=== PATIENT | female | born 1970 | race Caucasian/White ===

== ENCOUNTER 2019-05-10 11:10 | Emergency (ER) | payer SELFPAY ==
[~2019-05-10] VITALS: Ht 170.2 cm; Wt 63.6 kg
[~2019-05-10 11:10] MED LIST: AMOXICILLIN 50500 MG PO; CIPRO 500MG TA500 MG PO; GENTAMICIN OPTHA3 GM OU; NO HOME MEDICATIONS; NORCO 325 MG-51 TAB PO; PHENERGAN 25 TA25 MG PO; [UNRECOGNIZED DRUG - REMARK]
[2019-05-10 11:36] VITALS: TEMP 98
[2019-05-10 11:45] VITALS: BP 188/97
[2019-05-10 14:37] LABS: COLLECTION METHOD CLEAN CATCH
[2019-05-10 15:23] LABS: MUCOUS Present /lpf; PH 5 (5-8); URINE APPEARANCE Cloudy; URINE BACTERIA Rare /hpf; URINE BILIRUBIN Negative (NEGATIVE); URINE BLOOD 3+ (NEGATIVE); URINE COLOR Yellow; URINE GLUCOSE 3+ (NEGATIVE); URINE KETONE Negative (NEGATIVE); URINE LEUKOCYTE ESTERASE Trace (NEGATIVE); URINE NITRATE Negative (NEGATIVE); URINE PROTEIN(semi-quant) 1+ (NEGATIVE); URINE UROBILINOGEN Negative (NEGATIVE)
[2019-05-10 15:57] LABS: BASO # 0.1 (0.0-0.2); BASO % 0.5 % (0.0-2.0); EOS # 0.2 (0.0-0.7); EOS % 1.7 % (0-4.0); GRAN # 6.9 (1.4-6.5); GRAN % 69.5 % (42.2-75.2); HEMATOCRIT 39.1 % (37.0-47.0); LYMPH % 20.1 % (20.0-51.0); MEAN CELL VOLUME 85 fl (80.0-100.0); MEAN CORPUSCULAR HEMOGLOBIN 28 pg (27.0-31.0); MEAN CORPUSCULAR HGB CONC 33 g/dl (33.0-37.0); MONO # 0.8 (0.1-0.6); MONO % 7.8 % (1.7-9.3); PLATELET COUNT 370 K/mm3 (130-400); RED BLOOD COUNT 4.61 M/mm3 (4.10-5.30); REDCELL DISTRIBUTION WIDTH-CV 11.9 % (11.5-14.5)
[2019-05-10 16:06] LABS: ALBUMIN 3.7 gm/dL (3.5-5.0); BILIRUBIN,TOTAL 0.2 mg/dL (0.0-1.0); CALCIUM 8.9 mg/dL (8.4-10.2); CREATININE, serum 0.57 (0.52-1.25); POTASSIUM 4.3 mmol/L (3.4-5.0); TOTAL PROTEIN 7.6 gm/dL (6.4-8.2)
[2019-05-10] MEDS ORDERED: GLUCOPHAGE500 MG/TAB PO (16:27)
[2019-05-10] MEDS ORDERED: PRINIVIL10 MG PO (16:27)
[2019-05-10] MEDS ORDERED: AMOXICILLIN875 MG PO (16:31)
[2019-05-10 16:58] VITALS: PULSE 73
== END 2019-05-10 17:00 | disposition home or self-care (01) ==
LOC: COL.ER 11:10
PROVIDERS: Physician Assistant
DX: R51 Headache (principal); E11.9 Type 2 diabetes mellitus without complications; I10 Essential (primary) hypertension; E11.65 Type 2 diabetes mellitus with hyperglycemia; H66.91 Otitis media, unspecified, right ear; Z91.14 Patient's other noncompliance with medication regimen; Z87.891 Personal history of nicotine dependence
CPT/HCPCS: J0595; J1200; J2765; J7030

== ENCOUNTER 2020-09-03 08:30 | Emergency (ER) | payer OTHER ==
[~2020-09-03] VITALS: Ht 170.2 cm; Wt 70.5 kg
[~2020-09-03 08:30] MED LIST changes: +AMOXICILLIN875 MG PO; +GLUCOPHAGE500 MG/TAB PO; +PRINIVIL10 MG PO
[2020-09-03 08:35] VITALS: TEMP 97.6
[2020-09-03 10:04] LABS: BASO % 0.2 % (0.0-2.0); EOS % 0.2 % (0-4.0); GRAN # 3.5 (1.4-6.5); GRAN % 66.4 % (42.2-75.2); HEMOGLOBIN 11.9 g/dl (12.5-16.0); LYMPH # 1.1 (1.2-3.4); LYMPH % 19.8 % (20.0-51.0); MEAN CELL VOLUME 84 fl (80.0-100.0); MEAN CORPUSCULAR HEMOGLOBIN 28 pg (27.0-31.0); MEAN CORPUSCULAR HGB CONC 33 g/dl (33.0-37.0); MEAN PLATELET VOLUME 10.4 fl (7.4-10.4); MONO # 0.7 (0.1-0.6); MONO % 12.8 % (1.7-9.3); PLATELET COUNT 310 K/mm3 (130-400); RED BLOOD COUNT 4.27 M/mm3 (4.10-5.30); REDCELL DISTRIBUTION WIDTH-CV 11.7 % (11.5-14.5)
[2020-09-03 10:06] LABS: INR 1.2 (0.8-3.0); PROTHROMBIN TIME 13.5 SECONDS (9.7-12.8)
[2020-09-03 10:10] LABS: ALANINE AMINOTRANSFERASE 12 U/L (4-34); ALBUMIN 3.6 gm/dL (3.5-5.0); ALKALINE PHOSPHATASE 102 U/L (50-136); ANION GAP 7 mmol/L (7-16); AST,SGOT 24 U/L (15-37); BILIRUBIN,TOTAL 0.5 mg/dL (0.0-1.0); BLOOD UREA NITROGEN 14 mg/dL (7-17); CALCIUM 8.8 mg/dL (8.4-10.2); CARBON DIOXIDE 32 mmol/L (22-30); CHLORIDE 96 mmol/L (98-107); CREATININE, serum 0.62 (0.52-1.25); GLUCOSE 359 mg/dL (74-106); LIPASE 46 U/L (23-300); POTASSIUM 3.3 mmol/L (3.4-5.0); SODIUM 135 mmol/L (137-145); TOTAL PROTEIN 7.6 gm/dL (6.4-8.2)
[2020-09-03 10:21] LABS: TROPONIN-I < 0.012 ng/mL (0.000-0.035)
[2020-09-03] MEDS ORDERED: PREDNISONE20 MG PO (13:30)
[2020-09-03] MEDS ORDERED: NORVASC 10MG10 MG PO (13:30)
[2020-09-03] MEDS ORDERED: GLUCOPHAGE500 MG/TAB PO (13:30)
[2020-09-03 13:55] VITALS: BP 157/85; PULSE 88
== END 2020-09-03 13:55 ==
LOC: COL.ER 08:30
PROVIDERS: Emergency Medicine
DX: U07.1 COVID-19 (principal); E11.65 Type 2 diabetes mellitus with hyperglycemia; I10 Essential (primary) hypertension; Z79.84 Long term (current) use of oral hypoglycemic drugs
CPT/HCPCS: J0360; J1100; J7030

== ENCOUNTER 2020-12-19 10:26 | Emergency (ER) | payer OTHER ==
[~2020-12-19] VITALS: Ht 170.2 cm; Wt 79.5 kg
[~2020-12-19 10:26] MED LIST changes: +NORVASC 10MG10 MG PO; +PREDNISONE20 MG PO
[2020-12-19 10:38] VITALS: TEMP 98.9
[2020-12-19 11:16] LABS: BASO # 0.1 (0.0-0.2); BASO % 1.1 % (0.0-2.0); EOS # 0.2 (0.0-0.7); EOS % 3.4 % (0-4.0); GRAN # 3.6 (1.4-6.5); GRAN % 55.6 % (42.2-75.2); HEMATOCRIT 40.8 % (37.0-47.0); HEMOGLOBIN 13.5 g/dl (12.5-16.0); LYMPH # 1.9 (1.2-3.4); LYMPH % 30.1 % (20.0-51.0); MEAN CELL VOLUME 85 fl (80.0-100.0); MEAN CORPUSCULAR HEMOGLOBIN 28 pg (27.0-31.0); MEAN CORPUSCULAR HGB CONC 33 g/dl (33.0-37.0); MEAN PLATELET VOLUME 10.8 fl (7.4-10.4); MONO # 0.6 (0.1-0.6); MONO % 9.6 % (1.7-9.3); PLATELET COUNT 319 K/mm3 (130-400); REDCELL DISTRIBUTION WIDTH-CV 11.8 % (11.5-14.5)
[2020-12-19 11:29] LABS: ALBUMIN 3.7 gm/dL (3.5-5.0); BILIRUBIN,TOTAL 0.3 mg/dL (0.0-1.0); C-REACTIVE PROTEIN 0.7 mg/dL (0.0-0.9); CREATININE, serum 0.63 (0.52-1.25); POTASSIUM 3.5 mmol/L (3.4-5.0); TOTAL PROTEIN 7.6 gm/dL (6.4-8.2)
[2020-12-19 12:36] LABS: COLLECTION METHOD CLEAN CATCH
[2020-12-19 12:43] LABS: MUCOUS Present /lpf; PH 6 (5-8); SQUAMOUS EPITHELIAL 0-2 /hpf; URINE APPEARANCE Hazy; URINE BACTERIA None Seen /hpf; URINE BILIRUBIN Negative (NEGATIVE); URINE BLOOD 1+ (NEGATIVE); URINE COLOR Straw; URINE GLUCOSE 3+ (NEGATIVE); URINE KETONE Negative (NEGATIVE); URINE LEUKOCYTE ESTERASE 2+ (NEGATIVE); URINE NITRATE Negative (NEGATIVE); URINE PROTEIN(semi-quant) Negative (NEGATIVE); URINE UROBILINOGEN Negative (NEGATIVE)
[2020-12-19] MEDS ORDERED: NORCO 325 MG-51 TAB PO (14:06)
[2020-12-19] MEDS ORDERED: CEFTIN500 MG PO (14:06)
[2020-12-19] MEDS ORDERED: GLUCOPHAGE1000 MG PO (14:06)
[2020-12-19 14:45] VITALS: BP 168/98; PULSE 89
== END 2020-12-19 14:45 | disposition home or self-care (01) ==
LOC: COL.ER 10:26
PROVIDERS: Nurse Practitioner
DX: N39.0 Urinary tract infection, site not specified (principal); I10 Essential (primary) hypertension; E11.65 Type 2 diabetes mellitus with hyperglycemia; Z79.84 Long term (current) use of oral hypoglycemic drugs; Z80.49 Family history of malignant neoplasm of other genital organs
CPT/HCPCS: J0696; J1815; J2270; J2405; J7030

== ENCOUNTER → 2021-03-31 | Outpatient (CLI) | payer MEDICAID ==
[~2021-03-31] MED LIST changes: +CEFTIN500 MG PO; +GLUCOPHAGE1000 MG PO; +NEURONTIN300 MG/CAP PO; +PRIL40 PO; +PRINIVIL20 MG PO; +ULTRAM 50MG TAB50 MG PO; +ZOFRAN ODT4 MG PO
== END ==
LOC: COL.RAD 08:54
DX: R10.11 Right upper quadrant pain (principal)
CPT/HCPCS: A9537

== ENCOUNTER 2021-04-29 12:01 | Emergency (ER) | payer OTHER ==
[~2021-04-29] VITALS: Ht 170.2 cm; Wt 55.5 kg
[~2021-04-29 12:01] MED LIST changes: -NEURONTIN300 MG/CAP PO; -PRIL40 PO; -PRINIVIL20 MG PO; -ULTRAM 50MG TAB50 MG PO; -ZOFRAN ODT4 MG PO
[2021-04-29 12:21] VITALS: TEMP 97.4
[2021-04-29] MEDS ORDERED: NEURONTIN300 MG/CAP PO (12:33)
[2021-04-29] MEDS ORDERED: PRINIVIL20 MG PO (12:34)
[2021-04-29] MEDS ORDERED: PRIL40 PO (12:35)
[2021-04-29] MEDS ORDERED: ULTRAM 50MG TAB50 MG PO (12:36)
[2021-04-29 13:01] LABS: BASO % 0.4 % (0.0-2.0); EOS # 0.2 (0.0-0.7); EOS % 1.8 % (0-4.0); GRAN # 8.1 (1.4-6.5); GRAN % 73.2 % (42.2-75.2); HEMATOCRIT 39.5 % (37.0-47.0); HEMOGLOBIN 13.3 g/dl (12.5-16.0); LYMPH # 1.7 (1.2-3.4); LYMPH % 15.8 % (20.0-51.0); MEAN CELL VOLUME 85 fl (80.0-100.0); MEAN CORPUSCULAR HEMOGLOBIN 29 pg (27.0-31.0); MEAN CORPUSCULAR HGB CONC 34 g/dl (33.0-37.0); MEAN PLATELET VOLUME 10.3 fl (7.4-10.4); MONO # 0.9 (0.1-0.6); MONO % 8.4 % (1.7-9.3); PLATELET COUNT 374 K/mm3 (130-400); RED BLOOD COUNT 4.66 M/mm3 (4.10-5.30); REDCELL DISTRIBUTION WIDTH-CV 11.9 % (11.5-14.5)
[2021-04-29 13:14] LABS: ALBUMIN 4.3 gm/dL (3.5-5.0); BILIRUBIN,TOTAL 0.8 mg/dL (0.0-1.0); CALCIUM 10.1 mg/dL (8.4-10.2); CREATININE, serum 1.03 (0.52-1.25); POTASSIUM 3.9 mmol/L (3.4-5.0); TOTAL PROTEIN 7.8 gm/dL (6.4-8.2)
[2021-04-29 14:25] LABS: COLLECTION METHOD CLEAN CATCH
[2021-04-29 14:56] LABS: MUCOUS Present /lpf; PH 6 (5-8); SQUAMOUS EPITHELIAL 20-50 /hpf; URINE APPEARANCE Cloudy; URINE BACTERIA Rare /hpf; URINE BILIRUBIN Negative (NEGATIVE); URINE BLOOD Negative (NEGATIVE); URINE COLOR Yellow; URINE GLUCOSE 3+ (NEGATIVE); URINE KETONE 1+ (NEGATIVE); URINE LEUKOCYTE ESTERASE 3+ (NEGATIVE); URINE NITRATE Negative (NEGATIVE); URINE PROTEIN(semi-quant) 1+ (NEGATIVE); URINE UROBILINOGEN Negative (NEGATIVE)
[2021-04-29] MEDS ORDERED: NORCO 325 MG-51 TAB PO (16:27)
[2021-04-29] MEDS ORDERED: ZOFRAN ODT4 MG PO (16:27)
[2021-04-29 16:29] VITALS: BP 152/73; PULSE 91
== END 2021-04-29 16:20 | disposition home or self-care (01) ==
LOC: COL.ER 12:01
PROVIDERS: Emergency Medicine
DX: N39.0 Urinary tract infection, site not specified (principal); I10 Essential (primary) hypertension; E11.9 Type 2 diabetes mellitus without complications; Z32.02 Encounter for pregnancy test, result negative; Z79.84 Long term (current) use of oral hypoglycemic drugs; Z79.899 Other long term (current) drug therapy
CPT/HCPCS: J0360; J1170; J2405; J2765; J3010; J7120; Q9967

== ENCOUNTER 2021-05-04 11:13 | Emergency (ER) | payer OTHER ==
[~2021-05-04 11:13] MED LIST changes: +NEURONTIN300 MG/CAP PO; +PRIL40 PO; +PRINIVIL20 MG PO; +ULTRAM 50MG TAB50 MG PO; +ZOFRAN ODT4 MG PO
[2021-05-04 11:22] VITALS: TEMP 97.8
[2021-05-04 11:51] LABS: BASO # 0.1 (0.0-0.2); BASO % 0.8 % (0.0-2.0); EOS # 0.1 (0.0-0.7); EOS % 1.3 % (0-4.0); GRAN # 4.6 (1.4-6.5); GRAN % 53.9 % (42.2-75.2); HEMATOCRIT 42.2 % (37.0-47.0); HEMOGLOBIN 14.4 g/dl (12.5-16.0); LYMPH # 2.8 (1.2-3.4); LYMPH % 33.2 % (20.0-51.0); MEAN CELL VOLUME 84 fl (80.0-100.0); MEAN CORPUSCULAR HEMOGLOBIN 29 pg (27.0-31.0); MEAN CORPUSCULAR HGB CONC 34 g/dl (33.0-37.0); MEAN PLATELET VOLUME 10.5 fl (7.4-10.4); MONO # 0.9 (0.1-0.6); MONO % 10.6 % (1.7-9.3); PLATELET COUNT 464 K/mm3 (130-400); RED BLOOD COUNT 5.03 M/mm3 (4.10-5.30); REDCELL DISTRIBUTION WIDTH-CV 12.1 % (11.5-14.5)
[2021-05-04 12:02] LABS: ALANINE AMINOTRANSFERASE 16 U/L (4-34); ALBUMIN 4.4 gm/dL (3.5-5.0); ALKALINE PHOSPHATASE 70 U/L (50-136); ANION GAP 13 mmol/L (7-16); AST,SGOT 22 U/L (15-37); BILIRUBIN,TOTAL 0.7 mg/dL (0.0-1.0); BLOOD UREA NITROGEN 18 mg/dL (7-17); CALCIUM 10.1 mg/dL (8.4-10.2); CARBON DIOXIDE 26 mmol/L (22-30); CHLORIDE 95 mmol/L (98-107); CREATININE, serum 1.13 (0.52-1.25); GLUCOSE 219 mg/dL (74-106); POTASSIUM 4.2 mmol/L (3.4-5.0); SODIUM 135 mmol/L (137-145); TOTAL PROTEIN 8.2 gm/dL (6.4-8.2)
[2021-05-04 12:03] LABS: PROTHROMBIN TIME 11.2 SECONDS (9.7-12.8)
[2021-05-04 12:06] LABS: PARTIAL THROMBOPLASTIN TIME 31.2 SECONDS (26.0-37.0)
[2021-05-04 12:14] LABS: COLLECTION METHOD CLEAN CATCH
[2021-05-04 12:18] LABS: TROPONIN-I < 0.012 ng/mL (0.000-0.035)
[2021-05-04 12:22] LABS: MUCOUS Present /lpf; PH 5 (5-8); SQUAMOUS EPITHELIAL 0-2 /hpf; URINE APPEARANCE Clear; URINE BACTERIA None Seen /hpf; URINE BILIRUBIN Negative (NEGATIVE); URINE BLOOD 1+ (NEGATIVE); URINE COLOR Yellow; URINE GLUCOSE 1+ (NEGATIVE); URINE KETONE Negative (NEGATIVE); URINE LEUKOCYTE ESTERASE Negative (NEGATIVE); URINE NITRATE Negative (NEGATIVE); URINE PROTEIN(semi-quant) Negative (NEGATIVE); URINE RBC 0-2 /hpf; URINE UROBILINOGEN Negative (NEGATIVE)
[2021-05-04 13:18] VITALS: BP 148/87; PULSE 90
== END 2021-05-04 13:18 | disposition short-term general hospital (02) ==
LOC: COL.ER 11:13
PROVIDERS: Emergency Medicine
DX: I63.9 Cerebral infarction, unspecified (principal); I10 Essential (primary) hypertension; E11.9 Type 2 diabetes mellitus without complications; Z79.84 Long term (current) use of oral hypoglycemic drugs; Z79.899 Other long term (current) drug therapy
CPT/HCPCS: J3101; J7030; J7050; Q9967

== ENCOUNTER → 2021-08-18 | Outpatient (CLI) | payer OTHER | LOC: COL.RAD 10:32 | DX: K86.89 Other specified diseases of pancreas (principal); Z90.49 Acquired absence of other specified parts of digestive tract | CPT/HCPCS: Q9967 ==

== ENCOUNTER 2021-09-22 10:30 | Outpatient (RCR) | payer OTHER | END 2021-09-24 | disposition home or self-care (01) | LOC: MKS.ESL.PT | DX: I69.351 Hemiplegia and hemiparesis following cerebral infarction affecting right dominant side (principal) ==

== ENCOUNTER → 2021-10-08 | Outpatient (CLI) | payer OTHER | LOC: COL.RAD 12:15 | DX: R29.898 Other symptoms and signs involving the musculoskeletal system (principal) ==

== ENCOUNTER 2021-11-01 11:15 | Outpatient (RCR) | payer OTHER | END 2021-11-22 | disposition home or self-care (01) | LOC: MKS.ESL.PT | DX: I63.239 Cerebral infarction due to unspecified occlusion or stenosis of unspecified carotid artery (principal); Z90.49 Acquired absence of other specified parts of digestive tract; Z83.3 Family history of diabetes mellitus ==

== ENCOUNTER → 2022-01-13 15:40 | Outpatient (RCR) | payer OTHER | END | disposition home or self-care (01) | LOC: MKS.ESL.PT 11-23 14:30 | DX: I69.359 Hemiplegia and hemiparesis following cerebral infarction affecting unspecified side (principal) ==

== ENCOUNTER 2022-12-19 21:38 | Observation (INO) | payer MEDICAID ==
[~2022-12-19] VITALS: Ht 170.2 cm; Wt 79.6 kg
[~2022-12-19 21:38] MED LIST changes: +ADVIL LIQUI-GE200 MG PO; +ASPIRIN E.C. 8181 MG PO; +EUCERIN1 CRE TOP; +GLUCOTROL 5M5 MG/TAB PO; +HYZAAR 25 MG-101 TAB; +IBU600 MG PO; +IMITREX50 MG PO; +LIPITOR20 MG PO; +MOTRIN 200200 MG/TAB PO; +MOTRIN 800800 MG/TAB PO; +OMNICEF 300MG300 MG PO
[2022-12-19 22:01] LABS: COLLECTION METHOD CATHETER
[2022-12-19 22:02] LABS: BASO # 0.1 K/mm3 (0.0-0.2); BASO % 0.7 % (0.0-2.0); EOS # 0.3 K/mm3 (0.0-0.7); EOS % 2.3 % (0.0-4.0); GRAN # 9.3 K/mm3 (1.4-6.5); GRAN % 65.1 % (42.2-75.2); HEMATOCRIT 37.1 % (37.0-47.0); HEMOGLOBIN 12.3 g/dl (12.5-16.0); LYMPH # 3.2 K/mm3 (1.2-3.4); LYMPH % 22.6 % (20.0-51.0); MEAN CELL VOLUME 87 fl (80.0-100.0); MEAN CORPUSCULAR HEMOGLOBIN 29 pg (27-31); MEAN CORPUSCULAR HGB CONC 33 g/dl (33.0-37.0); MEAN PLATELET VOLUME 10.3 fl (7.4-10.4); MONO # 1.3 K/mm3 (0.1-0.6); MONO % 8.9 % (1.7-9.3); PLATELET COUNT 460 K/mm3 (130-400); RED BLOOD COUNT 4.25 M/mm3 (4.10-5.30); REDCELL DISTRIBUTION WIDTH-CV 11.9 % (11.5-14.5)
[2022-12-19 22:06] LABS: INR 0.9 (0.8-3.0); PROTHROMBIN TIME 10.7 SECONDS (9.7-12.8)
[2022-12-19 22:09] LABS: URINE APPEARANCE Clear (CLEAR/HAZY); URINE BLOOD Negative (NEGATIVE); URINE COLOR Yellow (YELLOW); URINE GLUCOSE 3+ (NEGATIVE); URINE KETONE Negative (NEGATIVE); URINE NITRATE Negative (NEGATIVE); URINE PROTEIN(semi-quant) Negative (NEGATIVE); URINE UROBILINOGEN 0.2 E.U/dL (0.2-1.0)
[2022-12-19 22:13] LABS: TRICYCLIC ANTIDEPRESS URINE NEGATIVE
[2022-12-19 22:14] LABS: SQUAMOUS EPITHELIAL 0-2 /hpf (0-10); URINE BACTERIA None Seen /hpf (NONE SEEN); URINE RBC 0-2 /hpf (0-2); URINE WBC 0-2 /hpf (0-2)
[2022-12-19 22:16] LABS: ALANINE AMINOTRANSFERASE 34 U/L (0-55); ALBUMIN 3.9 gm/dL (3.5-5.0); ALCOHOL(ethanol),MEDICAL < 10 mg/dL (0-10); ALKALINE PHOSPHATASE 132 U/L (40-150); ANION GAP 12 mmol/L (7-16); AST,SGOT 23 U/L (5-34); BILIRUBIN,TOTAL 0.3 mg/dL (0.2-1.2); BLOOD UREA NITROGEN 41 mg/dL (10-20); C-REACTIVE PROTEIN 0.99 mg/dL (0.00-0.50); CALCIUM 10.1 mg/dL (8.4-10.2); CARBON DIOXIDE 25 mmol/L (22-29); CHLORIDE 101 mmol/L (98-107); GLUCOSE 293 mg/dL (70-99); POTASSIUM 4.2 mmol/L (3.5-4.5); SODIUM 138 mmol/L (136-145); TOTAL PROTEIN 8.4 gm/dL (6.2-8.1)
[2022-12-19 22:23] LABS: TROPONIN-I < 0.010 ng/mL (0.00-0.033)
[2022-12-20] VITALS (7 sets, daily range): BP systolic 136–195; BP diastolic 59–86; PULSE 68–77; TEMP 97.9–98.6
[2022-12-20] MEDS ORDERED: LEVEMIR FLEX100 U/ML SQ (02:19)
[2022-12-20] MEDS ORDERED: FARXIGA5 PO (02:24)
[2022-12-20] MEDS ORDERED: MICROZIDE12.5 MG PO (02:25)
[2022-12-20] MEDS ORDERED: ZESTRIL 5MG5 MG PO (02:26)
[2022-12-20] MEDS ORDERED: NORVASC 5MG5 MG/TAB PO (02:27)
[2022-12-20] MEDS ORDERED: VITAMIN B-6100 MG (02:28)
[2022-12-20] MEDS ORDERED: ERGOCALCIFER50000 IU PO (02:28)
--- NOTE | 2022-12-20 02:40 | NUR ---
PT ARRIVED FROM ER VIA STRETCHER. ABLE TO AMBULATED INTO MEDICAL BED WITH ONE PERSON ASSIST. PT'S SBP 195, IRMA KELLER NOTIFIED AND STATES TO CONTINUE TO MONITOR. PRN MEDS IN FOR SBP >220. PT AAOX4, STATES CAME TO HOSPITAL ONLY BECAUSE DAUGHTER IN LAW WAS CONCERNED, HOWEVER PT NEVER FELT UNWELL. CALL LIGHT IN PLACE, FALL RISK PREVENTIONS IN PLACE. WILL CONTINUE TO MONITOR.
[2022-12-20 07:15] LABS: BASO # 0.1 K/mm3 (0.0-0.2); BASO % 0.6 % (0.0-2.0); EOS # 0.3 K/mm3 (0.0-0.7); EOS % 2.5 % (0.0-4.0); GRAN # 8.6 K/mm3 (1.4-6.5); GRAN % 65.5 % (42.2-75.2); HEMOGLOBIN 10.7 g/dl (12.5-16.0); LYMPH # 2.8 K/mm3 (1.2-3.4); LYMPH % 20.9 % (20.0-51.0); MEAN CELL VOLUME 86 fl (80.0-100.0); MEAN CORPUSCULAR HEMOGLOBIN 29 pg (27-31); MEAN CORPUSCULAR HGB CONC 34 g/dl (33.0-37.0); MEAN PLATELET VOLUME 10.8 fl (7.4-10.4); MONO # 1.4 K/mm3 (0.1-0.6); MONO % 10.2 % (1.7-9.3); PLATELET COUNT 393 K/mm3 (130-400); RED BLOOD COUNT 3.69 M/mm3 (4.10-5.30); REDCELL DISTRIBUTION WIDTH-CV 11.8 % (11.5-14.5)
[2022-12-20 07:20] LABS: HEMATOCRIT 31.9 % (37.0-47.0)
[2022-12-20 07:30] LABS: CREATININE, serum 1.25 mg/dL (0.57-1.11); POTASSIUM 3.9 mmol/L (3.5-4.5)
--- NOTE | 2022-12-20 14:18 | NUR ---
Initial visit; Patient thanked Ion Exchange Operator for looking in on her and offering God's blessings. Patient was eating so Ion Exchange Operator didn't linger, only to wish her well.
--- NOTE | 2022-12-20 15:18 | NUR ---
Compound Finisher met with patient to discuss discharge planning. Patient lives in [place] with her son, Cipriano and daughter in law, Tom (ph#[phone]). Patient sees Dr. Nails for primary care and obtains medications from [facility]. Patient advised Tom picks these up for her. Patient has a cane available at home, but reports she mostly uses the nelson in the home for ambulation. Patient does use a cane out in the community. Patient reports she is normally independent with ADLS but does always have someone home when she showers. Patient stated her DPOA-HC is her DILTom and she completed it at Dr. Nails's office. Patient plans to return home at time of discharge. VIELKA contacted VIELKA Talbert at Dr. Nails's office and requested copy of DPOA-HC. VIELKA placed copy on patient's chart. SW then contacted patient's DIL Tom who advised patient has a cane and walker available to her at home. Tom is in agreement with discharge plan of home. Discharge Plan: Home
--- NOTE | 2022-12-20 21:50 | NUR ---
Patient alert and orientedx 4 at this time, head to toe assessment done, see shift assessment, denies pain or discomfort at this time, INT to right AC, noted mild weakness to left upper extremities, denies further needs, call light and personal items within reach, will continue to monitor.
[2022-12-21 03:47] VITALS: BP 160/77; PULSE 75; TEMP 97.8
--- NOTE | 2022-12-21 04:45 | NUR ---
Patient resting in bed, eyes closed, respirations even and unlabored.
--- NOTE | 2022-12-21 06:22 | NUR ---
Patient was able to sleep last night, denies further need at this time.
[2022-12-21 07:22] VITALS: BP 149/71; PULSE 68; TEMP 97.6
[2022-12-21] MEDS ORDERED: LIPITOR 40MG TA40 MG PO (10:17)
[2022-12-21] MEDS ORDERED: PLAVIX 75MG TAB75 MG PO (10:17)
[2022-12-21] MEDS ORDERED: ASPIRIN 81M81 MG/TA2 PO (10:18)
--- NOTE | 2022-12-21 10:36 | NUR ---
Follow-up visit; Patient very sweet and said she feels a little bit better and thanked Prime Broker for looking in on her and continuing to keep her in Prime Broker's prayers.
[2022-12-21 10:50] VITALS: BP 133/69; PULSE 71; TEMP 98.3
--- NOTE | 2022-12-21 11:20 | NUR ---
Agree with student nurses assessment of the patient. Patient A&Ox3 with intermittent confusion. VSS. IV CDI. Denies pain and discomfort. Call light within reach. Bed alarm on
--- NOTE | 2022-12-21 12:37 | NUR ---
Patient transferred to [facility] Medical Unit from [facility] Surgical unit. Health Worker met with Britany to introduce self as SW on medical unit. SW collaborated with Patient to review Care Managment Assessment conducted by VIELKA Dowell yesterday, 12-20-22. Patient reports no changes to information. SW briefed Patient that this SW will follow through treatment and work with treatment team to assess for discharge needs. SW reviewed Patient's chart for PT/OT. PT/OT reccomendations are home with family assist. Discharge Plan: Home with family assist.
--- NOTE | 2022-12-21 16:30 | NUR ---
Discharge paperwork reviewed with the patient and family at the bedside. Patient verbalized an understanding to follow doctors orders. IV removed, tip intact. Gauze and coban applied. Patient transfered by wheelchair to awaiting vehicle. No further needs expressed.
== END 2022-12-21 16:30 | disposition home or self-care (01) ==
LOC: COL.ER 21:38 → SURG 12-20 00:47 → MEDICAL 12-21 06:00
PROVIDERS: Emergency Medicine; Student in an Organized Health Care Education/Training Program; ADMIT Internal Medicine
DX: I63.89 Other cerebral infarction (principal); R53.1 Weakness; G89.29 Other chronic pain; N17.9 Acute kidney failure, unspecified; R26.89 Other abnormalities of gait and mobility; M54.2 Cervicalgia; R51.9 Headache, unspecified; E11.65 Type 2 diabetes mellitus with hyperglycemia; I10 Essential (primary) hypertension; E53.1 Pyridoxine deficiency; E55.9 Vitamin D deficiency, unspecified; E11.42 Type 2 diabetes mellitus with diabetic polyneuropathy; R41.81 Age-related cognitive decline; E78.5 Hyperlipidemia, unspecified; R01.1 Cardiac murmur, unspecified; R79.0 Abnormal level of blood mineral; Z79.4 Long term (current) use of insulin; Z79.899 Other long term (current) drug therapy; Z79.84 Long term (current) use of oral hypoglycemic drugs; Z79.82 Long term (current) use of aspirin
CPT/HCPCS: G0378; J1650; J1815; J7030; Q9967

== ENCOUNTER 2023-08-21 10:15 | Outpatient (RCR) | payer MEDICAID ==
[~2023-08-21 10:15] MED LIST changes: +ASPIRIN 81M81 MG/TA2 PO; +ERGOCALCIFER50000 IU PO; +FARXIGA5 PO; +LEVEMIR FLEX100 U/ML SQ; +LIPITOR 40MG TA40 MG PO; +MICROZIDE12.5 MG PO; +NORVASC 5MG5 MG/TAB PO; +PLAVIX 75MG TAB75 MG PO; +VITAMIN B-6100 MG; +ZESTRIL 5MG5 MG PO
== END 2023-08-24 | disposition home or self-care (01) ==
LOC: MKS.ESL.PT
DX: R53.1 Weakness (principal); R26.9 Unspecified abnormalities of gait and mobility

== ENCOUNTER 2023-08-30 11:15 | Outpatient (RCR) | payer MEDICAID | END 2023-09-24 | disposition home or self-care (01) | LOC: MKS.ESL.PT | DX: R53.1 Weakness (principal); R26.9 Unspecified abnormalities of gait and mobility ==

== ENCOUNTER 2023-11-13 08:29 | Outpatient (RCR) | payer MEDICAID ==
[~2023-11-13 08:29] MED LIST changes: +HCTZ12.5TAB PO; -HYZAAR 25 MG-101 TAB; +HYZAAR 25 MG-101 TAB PO; -MICROZIDE12.5 MG PO
== END 2023-11-13 08:30 ==
LOC: MKS.ESL.PT 08:29
DX: R53.1 Weakness (principal); R26.9 Unspecified abnormalities of gait and mobility

== ENCOUNTER 2023-12-05 15:07 | Inpatient (IN) | payer MEDICARE, MEDICAID ==
[~2023-12-05] VITALS: Ht 170.2 cm; Wt 89.1 kg
[2023-12-05] VITALS (86 sets, daily range): BP systolic 137–241; BP diastolic 73–113; PULSE 71–77; TEMP 97.9; O2SAT 92–98
[2023-12-05] MEDS ORDERED: niCARdipine 200 ML IV ONE (15:30)
[2023-12-05 15:38] LABS: BASO # 0.1 K/mm3 (0.0-0.2); BASO % 0.7 % (0.0-2.0); EOS # 0.2 K/mm3 (0.0-0.7); GRAN # 8.5 K/mm3 (1.4-6.5); GRAN % 73.7 % (42.2-75.2); HEMATOCRIT 40.5 % (37.0-47.0); LYMPH # 1.9 K/mm3 (1.2-3.4); LYMPH % 16.6 % (20.0-51.0); MEAN CELL VOLUME 87 fl (80.0-100.0); MEAN CORPUSCULAR HEMOGLOBIN 28 pg (27-31); MEAN CORPUSCULAR HGB CONC 32 g/dl (33.0-37.0); MEAN PLATELET VOLUME 10.1 fl (7.4-10.4); MONO # 0.7 K/mm3 (0.1-0.6); MONO % 6.4 % (1.7-9.3); PLATELET COUNT 483 K/mm3 (130-400); RED BLOOD COUNT 4.65 M/mm3 (4.10-5.30); REDCELL DISTRIBUTION WIDTH-CV 12.7 % (11.5-14.5)
[2023-12-05 15:59] LABS: ALBUMIN 3.8 gm/dL (3.5-5.0); BILIRUBIN,TOTAL 0.5 mg/dL (0.2-1.2); CALCIUM 10.5 mg/dL (8.4-10.2); CREATININE, serum 1.79 mg/dL (0.57-1.11); TOTAL PROTEIN 8.2 gm/dL (6.2-8.1)
[2023-12-05 16:20] LABS: COLLECTION METHOD CATHETER
[2023-12-05 16:24] LABS: PH 6.5 (5.0-8.5); URINE APPEARANCE CLEAR (CLEAR/HAZY); URINE BLOOD NEGATIVE (NEGATIVE); URINE COLOR YELLOW (YELLOW); URINE GLUCOSE 3+ (NEGATIVE); URINE KETONE NEGATIVE (NEGATIVE); URINE NITRATE NEGATIVE (NEGATIVE); URINE PROTEIN(semi-quant) NEGATIVE (NEGATIVE); URINE UROBILINOGEN 0.2 E.U/dL (0.2-1.0)
[2023-12-05] MEDS ORDERED: Iohexol 300 - 100 ML VIAL IV ONE (17:02)
[2023-12-05] MEDS ORDERED: NS 100 ML IV SCH (17:02)
[2023-12-05] MEDS ORDERED: Acetaminophen 500 MG TAB PO ONE (17:45)
[2023-12-05] MEDS ORDERED: GLUCOPHAGE500 MG/TAB PO (19:16)
[2023-12-05] MEDS ORDERED: LEVEMIR FLEX100 U/ML SQ (19:22)
[2023-12-05] MEDS ORDERED: ADMELOG SO100 UNIT/1 SQ (19:24)
[2023-12-05] MEDS ORDERED: IBU400 MG PO (19:25)
[2023-12-05] MEDS ORDERED: Ondansetron 4 MG/2 ML VIAL IV PRN (19:30)
[2023-12-05] MEDS ORDERED: Acetaminophen 325 MG TAB PO PRN (19:30)
[2023-12-05] MEDS ORDERED: NS 1,000 ML IV SCH (19:30)
[2023-12-05] MEDS ORDERED: Albuterol/Ipratropium 3 MG-0.5 MG/3 ML Neb Soln IH PRN (19:30)
[2023-12-05] MEDS ORDERED: Dextrose (Glucose) 15 GM (4 x 3.75 GM) Chewable TABLET PACK PO PRN (20:00)
[2023-12-05] MEDS ORDERED: Dextrose 50% Water 25 GM/50 ML SYRINGE IV PRN (20:00)
[2023-12-05] MEDS ORDERED: Glucagon 1 MG VIAL IM PRN (20:00)
[2023-12-05 20:33] LABS: PROTHROMBIN TIME 11.2 SECONDS (9.7-12.8)
[2023-12-05 20:36] LABS: PARTIAL THROMBOPLASTIN TIME 30.2 SECONDS (26.0-37.0)
[2023-12-05] MEDS ORDERED: Insulin Glargine-ygfn (Lantus) SQ SCH (21:00)
[2023-12-05] MEDS ORDERED: Sennosides/Docusate 8.6-50 MG TAB PO SCH (21:00)
[2023-12-05] MEDS ORDERED: Insulin Lispro (HumaLOG) SQ SCH (21:00)
[2023-12-05] MEDS ORDERED: hydrALAZINE 20 MG/ML 1 ML VIAL IV PRN (22:30)
[2023-12-05] MEDS ORDERED: Acetamin/Butalbital/Caffeine 325-50-40 MG TAB PO PRN (22:30)
[2023-12-06] VITALS (716 sets, daily range): BP systolic 129–179; BP diastolic 76–104; PULSE 60–71; TEMP 97.2–98.2; O2SAT 84–100
[2023-12-06] MEDS ORDERED: Gabapentin 300 MG CAP PO SCH ×2 (02:38→10:30)
[2023-12-06 04:58] LABS: HEMOGLOBIN 11.4 g/dl (12.5-16.0); MEAN CELL VOLUME 84 fl (80.0-100.0); MEAN CORPUSCULAR HEMOGLOBIN 28 pg (27-31); MEAN CORPUSCULAR HGB CONC 34 g/dl (33.0-37.0); MEAN PLATELET VOLUME 10.2 fl (7.4-10.4); PLATELET COUNT 438 K/mm3 (130-400); RED BLOOD COUNT 4.02 M/mm3 (4.10-5.30); REDCELL DISTRIBUTION WIDTH-CV 12.6 % (11.5-14.5)
[2023-12-06 05:11] LABS: HEMATOCRIT 33.8 % (37.0-47.0)
[2023-12-06 05:17] LABS: ALANINE AMINOTRANSFERASE 14 U/L (0-55); ALBUMIN 3.4 gm/dL (3.5-5.0); ALKALINE PHOSPHATASE 105 U/L (40-150); ANION GAP 10 mmol/L (7-16); AST,SGOT 14 U/L (5-34); BILIRUBIN,TOTAL 0.5 mg/dL (0.2-1.2); BLOOD UREA NITROGEN 42 mg/dL (10-20); CALCIUM 9.8 mg/dL (8.4-10.2); CARBON DIOXIDE 26 mmol/L (22-29); CHLORIDE 104 mmol/L (98-107); CHOLESTEROL 130 mg/dL (0-199); CHOLESTEROL RISK RATIO 4.6; GLUCOSE 126 mg/dL (70-99); HDL CHOLESTEROL 28 mg/dL (40-60); LDL CHOLESTEROL 69 mg/dL; POTASSIUM 3.9 mmol/L (3.5-4.5); SODIUM 140 mmol/L (136-145); TOTAL PROTEIN 7.2 gm/dL (6.2-8.1); TRIGLYCERIDE 163 mg/dL (0-149)
--- NOTE | 2023-12-06 08:15 | NUR ---
Resting in bed; alert and cooperative with assessment. Able to answer orientation questions correctly, however, was slow to answer some questions and had to self correct some answers. Upper and lower left sided weakness noted. This is per baseline per patient after previous stroke. Call light left with reach.
[2023-12-06] MEDS ORDERED: oxyCODONE 5 MG TAB PO PRN ×2 (10:30→11:30)
--- NOTE | 2023-12-06 11:20 | NUR ---
Transfered from unit to MRI suite; Alert and oriented per baseline, although slighlty drowsy due to pain medicaiton upon transfer.
--- NOTE | 2023-12-06 12:15 | NUR ---
Returned from MRI; tolerated well without any concerns. Assisted to set up lunch tray and currenlty eating lunch. Will continue to monitor.
--- NOTE | 2023-12-06 14:11 | NUR ---
scrap metal processing worker completed intake with [id number]/DPOA-HC, Tom due to patient being taken to MRI. Tom reports pt lives with her and son, Cipriano in [place]. She confirmed pt sees Dr. Jameson [facility]. Tom informs SW pt's insurance in [employer] and is not [employer]. Tom states when she goes home she will bring in pt's card as she just got it in the mail. Tom states pt needs assistance with bathing, but is independent with dressing and toileting. She reports pt uses a FWW, cane, rolator, and wheelchair for DME. VIELKA verified DPOA-HC on file listing [facility] [phone]. Tom advised that pt was going to OP PT at [facility], but she did not progress further and plateaued so she is not active there. VIELKA advised PT/OT will see pt and make reccomendations moving forward. PT/OT pending Discharge Plan: andrew
[2023-12-06] MEDS ORDERED: Triamcinolone 0.1% Cream 15 GM TUBE TP PRN (14:45)
--- NOTE | 2023-12-06 19:43 | NUR ---
PT REMAINS IN BED ALERT AND CALM. FAMILY AT BEDSIDE. NO ACUTE EVENTS. RIGHT AC IV, WITH NO INFUSIONS CURRENTLY RUNNING. SANCHEZ IN PLACE AND DRAINING.
[2023-12-07] VITALS (16 sets, daily range): BP systolic 118–175; BP diastolic 76–91; PULSE 62–70; TEMP 98–98.5; O2SAT 92–94
[2023-12-07] MEDS ORDERED: Clopidogrel 75 MG TAB PO SCH (07:00)
[2023-12-07] MEDS ORDERED: Meclizine 25 MG TAB PO ONE (08:45)
--- NOTE | 2023-12-07 10:05 | NUR ---
Report phoned to MINDY Christianson
--- NOTE | 2023-12-07 10:35 | NUR ---
Pt to Medical 316 - bedside handoff performed with MINDY Christianson - pt's [id number] at bedside. Call light in reach, pt denies questions or concerns
--- NOTE | 2023-12-07 10:35 | NUR ---
PT ARRIVED FROM ICU TO ROOM 316 BY BED. PT IS AXOX4. PT IS ON RA. PT IS SHOWING SR ON TELE. PT ORIENTED TO ROOM AND FLOOR. PT GIVEN CALL LIGHT AND INSTRUCTED TO CALL WITH ALL NEEDS. PT IS IN FALL PRECAUTIONS AND BEDALARM ACTIVE. PTS DAUGHTER IN LAW (DPOA) BEDSIDE. PRIVACY CODE GIVEN. ALL QUESTIONS ANSWERED.
[2023-12-07] MEDS ORDERED: VITAMIN D250 MCG PO (10:36)
[2023-12-07] MEDS ORDERED: HCTZ12.5TAB PO (10:37)
[2023-12-07] MEDS ORDERED: LOPROX CR 15GM TOP (10:41)
[2023-12-07] MEDS ORDERED: ISOPTIN SR120 MG PO (10:43)
--- NOTE | 2023-12-07 11:21 | NUR ---
bilingual patient support caseworker attended clinical rounding and was informed pt will transfer to the medical floor today. VIELKA spoke with [id number], Tom who reports pt's insurance card was given to RN last night and copies placed in the chart. VIELKA informed VIELKA Dowell on medical floor of pt's transfer and needing to send insurance card to GISELLE De Oliveira. VIELKA spoke with IPR Director and gave an official referral for IPR. VIELKA notes a FWW was reccomended, but patient already has one per Tom. Discharge Plan: IPR review
--- NOTE | 2023-12-07 12:45 | NUR ---
1200-FAMILY VERY CONCERED ABOUT PT'S STATUS AND THAT "NO PHYSICIAN KNOWS WHATS WRONG". DISCUSSED WITH FAMILY IMAGING RESULTS AND LABS. DISCUSSED PT AND OT. DISCUSSED POSSIBLITY OF VERTIGO AND TESTING DONE BY PT. CALLED AND ASKED TO COME TALK WITH FAMILY. FAMILY INSISTING ON A ENT CONSULT. NOTIFIED AND ORDER RECEIVED. MESSAGE LEFT WITH 'S NURSE REGARDING CONSULT. 1240-ADORE PT GOING TO SEE PT AGAIN REGARDING VERTIGO.
--- NOTE | 2023-12-07 21:15 | NUR ---
Patient resting in bed. States she has pain at her IV instertion site, IV partially pulled out and bent, IV discontinued and new IV site started in left wrist. Denies any other pain or needs. Cath care provided. Assessment complete. Call light and personal items in reach. Bed in low position and bed alarm on.
[2023-12-08 03:23] VITALS: BP 127/82; PULSE 62; TEMP 97.7
--- NOTE | 2023-12-08 06:00 | NUR ---
Patient resting in bed. Denies any pain or needs at this time. No changes over night. Call light and personal items in reach. Bed in low position and bed alarm on.
[2023-12-08 07:09] VITALS: BP 173/86; PULSE 65; TEMP 98.2
[2023-12-08 08:20] VITALS: BP 144/83
[2023-12-08 11:38] VITALS: BP 158/88; PULSE 74; TEMP 97.7
[2023-12-08] MEDS ORDERED: LIPITOR 80MG80 MG PO (13:11)
--- NOTE | 2023-12-08 14:49 | NUR ---
Patient alert and oriented x4. Denies pain or discomfort. Complains of ongoing dizziness. Left sided weakness continues, patient states it is mildly worse than baseline. Medina catheter discontinued with no complications. 9ml of water removed from balloon and catheter removed with tip intact. Patient tolerated well. No issues urinating in toilet following catheter removal. Urine clear and pale yellow. IV discontinued to left forearm with no complications. Patient transferred to [facility] via wheelchair. Daughter in law present. Report given to MINDY Quintanilla.
[2023-12-08 14:50] VITALS: BP 171/103; PULSE 72; TEMP 97.8
--- NOTE | 2023-12-08 15:42 | NUR ---
Patient to discharge to [facility] today.
== END 2023-12-08 14:45 | DRG 149 ==
LOC: COL.ER 15:07 → ICU 18:43 → MEDICAL 12-07 10:45
PROVIDERS: Family Medicine; Physician Assistant; ADMIT Internal Medicine
DX: H81.10 Benign paroxysmal vertigo, unspecified ear (principal); G81.94 Hemiplegia, unspecified affecting left nondominant side; E78.5 Hyperlipidemia, unspecified; Z79.4 Long term (current) use of insulin; I10 Essential (primary) hypertension; E11.40 Type 2 diabetes mellitus with diabetic neuropathy, unspecified; K59.00 Constipation, unspecified
CPT/HCPCS: J0360; J1815; J2404; J2405; J3101; J7030; Q3014; Q9967

== ENCOUNTER 2023-12-08 12:16 | Inpatient (IN) | payer MEDICARE, MEDICAID ==
[~2023-12-08] VITALS: Ht 170.2 cm; Wt 85.5 kg
[~2023-12-08 12:16] MED LIST changes: +ADMELOG SO100 UNIT/1 SQ; +IBU400 MG PO; +ISOPTIN SR120 MG PO; +LOPROX CR 15GM TOP; +VITAMIN D250 MCG PO
[2023-12-08] MEDS ORDERED: LIPITOR 80MG80 MG PO (13:11)
--- NOTE | 2023-12-08 14:55 | NUR ---
admitted per WC from room 316, alert and oriente,d BP on right arm 177/103, rechecked in left arm and 155/88, full physical assessment completed, see intervention for further info
[2023-12-08] MEDS ORDERED: Naloxone 0.4 MG/ML VIAL IV PRN (15:15)
[2023-12-08] MEDS ORDERED: Sennosides/Docusate 8.6-50 MG TAB PO PRN (15:15)
[2023-12-08] MEDS ORDERED: Polyethylene Glycol 3350 17 GM PDS PO PRN (15:15)
[2023-12-08] MEDS ORDERED: Docusate Sodium 100 MG CAP PO PRN (15:15)
[2023-12-08] MEDS ORDERED: Acetaminophen 325 MG TAB PO PRN (15:15)
--- NOTE | 2023-12-08 15:15 | NUR ---
resting in bed watching TV, full admission and physical assessment completed, see interventions for further info
[2023-12-08] MEDS ORDERED: Glucagon 1 MG VIAL IM PRN (15:45)
[2023-12-08] MEDS ORDERED: Dextrose (Glucose) 15 GM (4 x 3.75 GM) Chewable TABLET PACK PO PRN (15:45)
[2023-12-08] MEDS ORDERED: Dextrose 50% Water 25 GM/50 ML SYRINGE IV PRN (15:45)
--- NOTE | 2023-12-08 16:20 | NUR ---
resting in bed, assisted her with ordering supper, telemetry discontinued at this time
[2023-12-08] MEDS ORDERED: metFORMIN 500 MG TAB PO SCH (17:00)
[2023-12-08] MEDS ORDERED: Insulin Lispro (HumaLOG) SQ SCH (17:54)
[2023-12-08] MEDS ORDERED: hydrALAZINE 20 MG/ML 1 ML VIAL IV PRN (18:00)
--- NOTE | 2023-12-08 19:13 | NUR ---
bedside shift report given to MINDY Holguin
[2023-12-08 19:41] VITALS: BP 130/67; PULSE 68; TEMP 98.1
[2023-12-08 20:00] VITALS: BP_SYST 130
[2023-12-08] MEDS ORDERED: hydroCHLOROthiazide 12.5 MG CAP PO SCH (21:00)
[2023-12-08] MEDS ORDERED: Insulin Glargine-ygfn (Lantus) SQ SCH (21:00)
[2023-12-08] MEDS ORDERED: Verapamil SR 120 MG TAB PO SCH (21:00)
[2023-12-08] MEDS ORDERED: Gabapentin 300 MG CAP PO SCH (21:00)
[2023-12-08] MEDS ORDERED: Triamcinolone 0.1% Cream 15 GM TUBE TP SCH (21:00)
[2023-12-09 05:28] VITALS: BP 128/72; PULSE 67; TEMP 98.3
[2023-12-09 07:00] VITALS: BP_SYST 128
[2023-12-09] MEDS ORDERED: Clopidogrel 75 MG TAB PO SCH (07:00)
[2023-12-09] MEDS ORDERED: HYDROCHLOROTHIAZIDE 25 MG PO SCH (09:00)
[2023-12-09] MEDS ORDERED: Gabapentin 300 MG CAP PO SCH (09:00)
[2023-12-09] MEDS ORDERED: DAPAGLIFLOZIN 5 MG PO SCH (09:00)
[2023-12-09] MEDS ORDERED: [UNRECOGNIZED DRUG - OTHER] PO SCH (09:00)
[2023-12-09] MEDS ORDERED: Cholecalciferol (Vit D3) 1000 Units TAB PO SCH (09:00)
[2023-12-09] MEDS ORDERED: Empagliflozin 10 MG TAB PO SCH (09:00)
[2023-12-09] MEDS ORDERED: LOSARTAN 100 MG PO SCH (09:00)
--- NOTE | 2023-12-09 09:10 | NUR ---
SHIFT ASSESSMENT COMPLETE. VSS. PATIENT UP EATING BREAKFAST IN BED. ALL MORNING MEDS GIVEN PER ORDERS. PATIENT STATED PAIN 4/10 THIS AM IN HER NECK PAIN MEDS GIVEN PER ORDERS. PATIENT HAS NO OTHER COMPLAINTS OR REQUEST AT THIS TIME. FALL PRECAUTIONS IN PLACE AND CALL LIGHT IN REACH.
[2023-12-09 17:29] VITALS: BP 193/103; PULSE 67; TEMP 98.2
[2023-12-09] MEDS ORDERED: hydrALAZINE 25 MG TAB PO ONE ×2 (17:45)
[2023-12-09] MEDS ORDERED: amLODIPine 10 MG TAB PO PRN (17:45)
[2023-12-09 17:52] VITALS: BP 193/103; PULSE 67
--- NOTE | 2023-12-09 17:55 | NUR ---
PATIENTS BP 191/103 AT 1800, [facility] AND RECEIVED NEW ORDER. SEE EMAR. WILL RECHECK BP IN 1 HOUR.
[2023-12-09 19:19] VITALS: BP_SYST 193
[2023-12-09 19:45] VITALS: BP 160/90
[2023-12-10 06:31] VITALS: BP 129/74; PULSE 66; TEMP 97.8
--- NOTE | 2023-12-10 06:50 | NUR ---
appears to be sleeping, arouses easily and bedside shift report received from MINDY Holguin
[2023-12-10 07:10] VITALS: BP_SYST 129
--- NOTE | 2023-12-10 07:20 | NUR ---
resting in bed waiting for breakfast, full assessment completed, see interventions for further info, c/o some dizziness and headache, medicated with tylenol 650mg po
--- NOTE | 2023-12-10 09:00 | NUR ---
she is resting in bed at this time, states she doesn't feel the best, spoke with Jerzy physical therpist few minutes ago, he states patient was positive for BPPV and exercises performed to help with this, he states he did throw up after the exercises completed, spoke with patient and explained to her the nausea, emesis, and vertigo with BPPV is very normal, wants to just rest for now and this was encouraged, lights off, blinds pulled partially down
--- NOTE | 2023-12-10 09:24 | NUR ---
SW met with patient to complete intake. Patient provides that she lives in [facility]. Point of contact is son/ Alt DPOA-HC Cipriano Travis [phone]. Patient provides that she utilize a cane, is independent with ADL's, PCP is Dr. Jameson in [place] and pharmacy is [facility]. Patient provides that daugther is DPOA/ Tom Cowart [phone]. Patient provides that her plan is to return to her home upon discharge. SW will continue to follow. Discharge plan: home
--- NOTE | 2023-12-10 10:15 | NUR ---
appears to be sleeping, in bed with lights off, eyes closed, resp quiet and easy
--- NOTE | 2023-12-10 11:15 | NUR ---
awake and called to get up to bathroom, continues to c/o nausea with the dizziness, assisted back to bed
--- NOTE | 2023-12-10 12:24 | NUR ---
sitting up in bed trying to have some lunch
[2023-12-10] MEDS ORDERED: hydrALAZINE 10 MG TAB PO PRN (13:00)
--- NOTE | 2023-12-10 14:20 | NUR ---
in bed and appears to be dozing
--- NOTE | 2023-12-10 14:56 | NUR ---
c/o headache and requesting tyleno. BP 132/68, medicated with tylenol 650mg po
--- NOTE | 2023-12-10 16:06 | NUR ---
assisted up to bathroom and voided qs, then ambulated out to room and into recliner
[2023-12-10 18:07] VITALS: BP 142/81; PULSE 68; TEMP 98.1
--- NOTE | 2023-12-10 18:43 | NUR ---
bedside shift report given to MINDY Franklin
[2023-12-10 18:51] VITALS: BP_SYST 142
--- NOTE | 2023-12-10 20:17 | NUR ---
Patient assessed at this time, see shift assessment, A/Ox4, reports headache, offered tylenol but refused, offered ice pack and applied to occipital area, took pills without difficulty, denies further needs, call light and personal items within reach, will continue to monitor.
--- NOTE | 2023-12-10 22:22 | NUR ---
Patient called with complaints of "feels like somebody squeezes my left leg and my toes on my left foot are numb", called Rylie and made her aware and she said she will come to see the patient.
[2023-12-10 22:23] VITALS: BP 158/81; PULSE 66
[2023-12-10] MEDS ORDERED: Gabapentin 300 MG CAP PO ONE (22:45)
--- NOTE | 2023-12-10 22:55 | NUR ---
Gabapentin and lovenox given at this time per orders,ice water given, patient denies further needs.
[2023-12-11 05:25] VITALS: BP 133/77; PULSE 73; TEMP 98.3
[2023-12-11 05:56] VITALS: BP_SYST 133
--- NOTE | 2023-12-11 05:56 | NUR ---
Shift report received from night RN. Pt c/o LLE weakness overnight. Duplex scan ordered. RAD notified at 0558 by this RN. Pt given dose of Lovenox overnight by night RN. Pt sleeping supine in bed w/ even & unlabored resps. Call light in reach. Bed alarm on.
--- NOTE | 2023-12-11 08:15 | NUR ---
Pt lying supine in bed. Sister at the bedside. Pt refusing breakfast tray because of the items delivered. New tray ordered for pt. Pt reporting L calf pain & COLLINS at 06/04. Too soon for next dose of Tylenol. Other needs denied. Call light in reach. Bed alarm on.
--- NOTE | 2023-12-11 09:05 | NUR ---
Pt off unit w/ PT.
[2023-12-11] MEDS ORDERED: Lidocaine 5% Ointment 35.44 GM TUBE TP SCH (10:05)
--- NOTE | 2023-12-11 11:12 | NUR ---
Pt sitting up in recliner after working w/ OT. Lidocaine oint applied to base of neck per order. Other needs denied. Call light in reach. Chair alarm in place.
--- NOTE | 2023-12-11 13:56 | NUR ---
Pt off unit w/ PT.
--- NOTE | 2023-12-11 15:13 | NUR ---
bottle line worker met with patient briefly to discuss how therapy has been going. Patient stated it has been going well. VIELKA discussed meeting with patient on Monday after IPR team conference and scheduling a family meeting. Patient provided her daughter's phone number, Tom , Marquis# [phone], she stated that she lives with her. VIELKA updated Kasandra, IPR director, whom expressed the team feels patient may be able to discharge late this week and requested a family meeting on Monday. VIELKA contacted Tom to schedule a family meeting. Tom reports she is not available Monday or . Tom asked if tomorrow, Monday, would work for the family meeting. VIELKA met with Kasandra, [facility] director, whom reports Monday at 1 pm will work for the family meeting. VIELKA contacted Tom and let her know, Tom will be present in person. Discharge plan: Home with possibly home health
--- NOTE | 2023-12-11 16:06 | NUR ---
Pt reporting headache. Tylenol given per PRN order. Other needs denied. Call light in reach. Chair alarm in place.
[2023-12-11 16:56] VITALS: BP 138/86; PULSE 64; TEMP 97.8
[2023-12-11 19:07] VITALS: BP_SYST 138
--- NOTE | 2023-12-11 20:41 | NUR ---
Patient resting in bed, A/Ox3, assessed at this time, see shift assessment, reports she still has a headache, tylenol given, applied lidocaine ointment to the neck area as well,she reports it's been helping her, denies further needs, call light and personal items within reach, fall precautions in place, will continue to monitor.
[2023-12-11 23:11] VITALS: BP 116/70
[2023-12-12 05:27] VITALS: BP 150/82; PULSE 71; TEMP 97.9
[2023-12-12 07:06] VITALS: BP_SYST 150
--- NOTE | 2023-12-12 07:07 | NUR ---
Shift report received from night RN. No events reported overnight. Pt sleeping supine in bed w/ even & unlabored resps. Call light in reach. Bed alarm on.
--- NOTE | 2023-12-12 07:46 | NUR ---
Pt up to recliner after toileting to eat breakfast. TAC oint. applied to red areas bilat breast. Lidocaine oint applied to base of neck at pt's request. Other needs denied. Call light in reach. Chair alarm in place.
--- NOTE | 2023-12-12 09:48 | NUR ---
Pt off unit w/ PT.
--- NOTE | 2023-12-12 12:26 | NUR ---
Pt sitting up in bed eating lunch independently. Reports feeling tired from therapy. Denies any needs. Call light in reach. Bed alarm on.
--- NOTE | 2023-12-12 13:38 | NUR ---
ship worker attended the family meeting with IPR team, patient and family members to discuss patient's progress and potential discharge. Patient will be ready for discharge later this week. Family chose as it would work best for their schedule. Patient chose outpatient PT and OT at [facility]. Discharge plan: Home with outpatient PT and OT
--- NOTE | 2023-12-12 15:20 | NUR ---
Pt sleeping supine in bed. Resps even & unlabored. Call light in reach. Bed alarm on.
--- NOTE | 2023-12-12 17:00 | NUR ---
Pt sitting up in recliner watching tv. Pt denies any needs at this time. Call light in reach. Chair alarm in place.
[2023-12-12 17:19] VITALS: BP 110/73; PULSE 71; TEMP 97.5
[2023-12-12 19:43] VITALS: BP_SYST 110
[2023-12-12 20:45] VITALS: BP 143/88; PULSE 70
--- NOTE | 2023-12-12 23:36 | NUR ---
NURSING SHIFT ASSESSMENT COMPLETED. THE PATIENT WAS ALERT AND ORIENTED. THE PATIENT REPORTED PAIN 6/10 TO THE BACK OF HER HEAD. XYLOCAINE CREAM APPLIED ORDERED. THE PATIENT WAS ASSISTED TO THE BATHROOM WITH A GAIT BELT AND A WALKER AND SHE TOLERATED THE ACTIVITY WELL. THE PATIENT HAD A BM AT THAT TIME. EVENING MEDICATIONS REVIEWED AND QUESTIONS ANSWERED. CALL LIGHT WITHIN REACH. BED ALARM ON AND BED IN LOW POSITION.
[2023-12-13 06:00] VITALS: BP 133/80; PULSE 69; TEMP 97.8
[2023-12-13 07:14] VITALS: BP_SYST 133
--- NOTE | 2023-12-13 08:15 | NUR ---
pt a&ox4 sitting in recliner finished up with breakfast. vss. meds given and assessment complete. pt denies pain. no needs at this time. call light in reach. fall precautions in place.
--- NOTE | 2023-12-13 14:51 | NUR ---
Social work student faxed outpatient pt/ot referral to [facility]. Discharge plan: Home with outpatient pt/ot
--- NOTE | 2023-12-13 16:01 | NUR ---
receiving worker attended the IPR team conference. Patient is doing well with PT/OT and ST. Patient is scheduled to discharge on 12/14/23 with outpatient PT/OT at [facility]. SW met with patient, reviewed and provided a copy of the IPR team conference notes. Patient has no concerns about discharge and is ready to go tomorrow with outpatient PT and OT. Discharge plan: Home with OP PT and OT
[2023-12-13 17:15] VITALS: BP 134/78; PULSE 67; TEMP 97.6
[2023-12-13 19:00] VITALS: BP_SYST 134
--- NOTE | 2023-12-13 22:38 | NUR ---
PT ALERT AND ORIENTED, STANDBY ASSIST WITH FWW AND GAIT BELT. VSS, SHIFT ASSESSMENT COMPLETE. DENIES PAIN AT THIS TIME, MEDICATED PER EMAR. ASSISTED PT WITH NIGHTIME ROUTINE. DENIES FURTHER NEED AT THIS TIME. CALL LIGHT WITHIN REACH. EVEN UNLABORED RESPR.
[2023-12-14 06:22] VITALS: BP 144/80; PULSE 69; TEMP 97.7
[2023-12-14 07:09] VITALS: BP_SYST 144
--- NOTE | 2023-12-14 07:10 | NUR ---
Shift report received from night RN. No events reported overnight. Pt sleeping supine in bed. Call light in reach. Bed alarm on.
--- NOTE | 2023-12-14 10:32 | NUR ---
Pt off unit for Group Therapy.
--- NOTE | 2023-12-14 11:40 | NUR ---
easement worker met with patient to review the important message from Medicare. Patient understood and signed the form. SW made a copy of the form, placed original in the chart and provided copy to patient. SW faxed outpatient discharge orders to [facility] and confirmed they received the referral. THey will be contacting patient to schedule the first appointment. Discharge plan: Home with outpatient PT/OT
--- NOTE | 2023-12-14 11:51 | NUR ---
Pt's sister here take pt home. DC summary reviewed w/ pt & her sister. They had no further questions. Pt ambulated off unit w/ personal cane & was escorted by RN to vehicle.
--- NOTE | 2023-12-14 14:08 | NUR ---
Discharge QIM scores were reviewed by the team. Code of 6 chosen for toileting hygiene was determined by team discussion to be the most usual performance for this patient during the discharge assessment period. Code of 6 chosen for sit to stand was determined by team discussion to be the most usual performance for this patient during the discharge assessment period. Code of 6 chosen for walking 10 feet was determined by team discussion to be the most usual performance for this patient during the discharge assessment period. Code of 6 chosen for walking 50 feet w/ 2 turns was determined by team discussion to be the most usual performance before interventions for this patient during the discharge assessment period. Code of 6 chosen for walking 150 feet was determined by team discussion to be the most usual performance before interventions for this patient during the discharge assessment period.--Kasandra Albarado, PD
== END 2023-12-14 11:57 | disposition home or self-care (01) | DRG 948 ==
PROVIDERS: ADMIT Physical Medicine & Rehabilitation Sports Medicine
DX: R53.81 Other malaise (principal); I69.354 Hemiplegia and hemiparesis following cerebral infarction affecting left non-dominant side; I16.1 Hypertensive emergency; G93.40 Encephalopathy, unspecified; H81.10 Benign paroxysmal vertigo, unspecified ear; R26.89 Other abnormalities of gait and mobility; I69.322 Dysarthria following cerebral infarction; E78.5 Hyperlipidemia, unspecified; E11.40 Type 2 diabetes mellitus with diabetic neuropathy, unspecified; E11.22 Type 2 diabetes mellitus with diabetic chronic kidney disease; N18.9 Chronic kidney disease, unspecified; I12.9 Hypertensive chronic kidney disease with stage 1 through stage 4 chronic kidney disease, or unspecified chronic kidney disease; K21.9 Gastro-esophageal reflux disease without esophagitis; R51.9 Headache, unspecified; K59.00 Constipation, unspecified; Z74.09 Other reduced mobility; Z79.4 Long term (current) use of insulin; Z79.82 Long term (current) use of aspirin; Z79.899 Other long term (current) drug therapy; Z79.84 Long term (current) use of oral hypoglycemic drugs; M79.662 Pain in left lower leg; M54.81 Occipital neuralgia
CPT/HCPCS: A9270; A9284; J1650; J1815